=== PATIENT | male | born 1985 | race Caucasian/White ===

== ENCOUNTER 2022-11-23 13:28 | Emergency (ER) | payer OTHER ==
[~2022-11-23] VITALS: Ht 167.6 cm; Wt 90.7 kg
--- NOTE | 2022-11-23 14:14 | NUR ---
at bedside for eval.
[2022-11-23] MEDS ORDERED: BENZONATATE 100 MG CAPSULE PO ONE ×2 (14:20→14:30)
[2022-11-23] MEDS ORDERED: ACETAMINOPHEN ES 500 MG TABLET ONE (14:20)
--- NOTE | 2022-11-23 14:24 | NUR ---
covid and flu swabs taken and sent to lab.
--- NOTE | 2022-11-23 14:24 | NUR ---
ppt a/ox4 potental for covid 19 placed in isolation room. pt reports feeling fatigue, insomnia, Diarrhea x4 day. chills and low grade fever 99.1
[2022-11-23] MEDS ORDERED: ACETAMINOPHEN ES 500 MG TABLET PO ONE (14:30)
[2022-11-23] MEDS ORDERED: PERM60CR4 TP (16:11)
[2022-11-23] MEDS ORDERED: CLOT12CR TP (16:11)
[2022-11-23] MEDS ORDERED: BENZ-13 PO (16:11)
[2022-11-23 16:19] VITALS: BP 152/93
== END 2022-11-23 16:19 | disposition home or self-care (01) ==
LOC: ER 13:44
DX: U07.1 COVID-19 (principal); B34.9 Viral infection, unspecified; E11.9 Type 2 diabetes mellitus without complications
CPT/HCPCS: 99284; 71045; 87426; 87804 ×2; C9803